=== PATIENT | female | born 1985 | race Caucasian/White ===

== ENCOUNTER 2017-08-24 01:31 | Emergency (ER) | payer BC ==
[~2017-08-24] VITALS: Ht 157.5 cm; Wt 58.1 kg
[~2017-08-24 01:31] MED LIST: ACETAMINOPHEN-1 EAC1 PO; ANTIVERT25 MG PO; FLAGYL500 MG PO; KEFLEX500 MG PO; LEXAPRO 10 MG T10 M2; LEXAPRO20 MG PO; MECLIZINE HCL12.5 MG PO; NORCO 5-325 TA1 EACH PO; PRENATAL; XANAX 1 MG TABLE1 MG PO; ZOFRAN 4 MG ORAL4 MG PO
[2017-08-24 01:56] LABS: URINE BILIRUBIN NEGATIVE (Negative); URINE BLOOD 3+ (Negative); URINE COLOR YELLOW; URINE GLUCOSE-RANDOM NEGATIVE (Negative); URINE KETONES NEGATIVE (Negative); URINE LEUKOCYTES-REFLEX NEGATIVE (Negative); URINE NITRITE-REFLEX NEGATIVE (Negative); URINE PROTEIN NEGATIVE (Negative); URINE SPECIFIC GRAVITY 1.015 (1.005-1.030); URINE UROBILINOGEN 0.2 E.U./dl (0.2-1.0)
[2017-08-24 01:58] LABS: URINE CLARITY SL CLOUDY
[2017-08-24 02:01] LABS: ABSOLUTE BASOPHILS 0.1 thou/uL (0.0-0.2); ABSOLUTE EOSINOPHILS 0.1 thou/uL (0.0-0.7); ABSOLUTE LYMPHOCYTES 5.6 thou/uL (0.8-5.3); ABSOLUTE MONOCYTES 0.9 thou/uL (0.0-1.2); BASOPHILS 0.4 %; EOSINOPHILS 1.2 %; HEMATOCRIT 42.1 % (37.0-47.0); HEMOGLOBIN 14.6 gm/dL (12.0-15.0); LYMPHOCYTES 44.3 %; MCH 30.9 pg (26.0-34.0); MCHC 34.6 g/dL (28.0-37.0); MCV 89.4 fL (80.0-100.0); MONOCYTES 6.9 %; NUCLEATED RBCS 0 /100WBC; PLATELET COUNT* 408 thou/uL (150-400); POLYS 47.2 %; RBC 4.71 mil/uL (4.20-5.00); RDW-CV 12.9 % (10.5-14.5); WBC 12.7 thou/uL (4.0-11.0)
[2017-08-24 02:07] LABS: CALCIUM 9.1 mg/dL (8.5-10.1); CREATININE 0.9 mg/dL (0.6-1.3); POTASSIUM 3.4 mmol/L (3.5-5.1)
[2017-08-24 02:10] LABS: BACTERIA-REFLEX 1-9 Few /HPF (None Seen); SQUAMOUS 0-3 Few /LPF (0-3); URINE RBC >20 Many /HPF (0-2); URINE WBC-REFLEX None Seen /HPF (0-5)
[2017-08-24 02:11] LABS: AMORPHOUS URATES Moderate /LPF (None Seen); CASTS None Seen /LPF (None Seen); MUCUS 0-3 Light strn/LPF (None Seen)
[2017-08-24 02:12] LABS: TOTAL BILIRUBIN 0.3 mg/dL (<0.1-1.0); TOTAL PROTEIN 7.2 g/dL (6.4-8.2)
[2017-08-24] MEDS ORDERED: IBUPROFEN 800800 M1 PO (02:56)
[2017-08-24] MEDS ORDERED: NORCO 5-325 TA1 EACH PO (02:56)
[2017-08-24] MEDS ORDERED: ZOFRAN ODT4 M1 PO (02:56)
[2017-08-24] MEDS ORDERED: FLOMAX0.4 MG PO (02:56)
[2017-08-24 04:11] VITALS: BP 136/93
== END 2017-08-24 04:11 | disposition home or self-care (01) ==
LOC: M.ERS 01:31
PROVIDERS: Emergency Medicine Emergency Medical Services
DX: N20.0 Calculus of kidney (principal); F41.9 Anxiety disorder, unspecified; Z87.442 Personal history of urinary calculi; Z88.1 Allergy status to other antibiotic agents

== ENCOUNTER 2018-01-14 08:51 | Emergency (ER) | payer BC ==
[~2018-01-14] VITALS: Ht 157.5 cm; Wt 56.7 kg
[~2018-01-14 08:51] MED LIST changes: +FLOMAX0.4 MG PO; +IBUPROFEN 800800 M1 PO; +ZOFRAN ODT4 M1 PO
[2018-01-14 09:14] VITALS: BP 136/85
--- NOTE | 2018-01-14 16:01 | EKG ---
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: SAMY : 1985 Requested By: Librado Lopez Order Number: [id number] MD: Jesus Manuel Harding Measurements Intervals [place] Rate: 117 P: 53 [place]: 170 QRS: 45 QRSD: 104 T: 1 QT: 290 QTc: 405 Interpretive Statements Sinus tachycardia Probable left atrial enlargement RSR' in V1 or V2, right VCD or RVH Nonspecific repol abnormality, diffuse leads Compared to ECG 04/19/2017 20:34:02 Early repolarization now present T-wave abnormality no longer present Electronically Signed On 01-14-2018 16:01:17 CDT by Jesus Manuel Harding [email or web address] <ELECTRONICALLY SIGNED> By: Jesus Manuel Harding MD, FAC 01/14/18 [id number] [id number] Jesus Manuel Harding MD, [facility] /EPI
== END 2018-01-14 09:15 | disposition home or self-care (01) ==
LOC: M.ERS 08:51
DX: F41.0 Panic disorder [episodic paroxysmal anxiety] (principal); Z87.442 Personal history of urinary calculi; Z88.1 Allergy status to other antibiotic agents